=== PATIENT | male | born 1995 | race Two or more races ===

== ENCOUNTER 2022-05-25 22:46 | Emergency (ER) | payer SELFPAY ==
[~2022-05-25] VITALS: Ht 177.8 cm; Wt 69.0 kg
[2022-05-25 22:54] VITALS: BP 132/78
[2022-05-25 23:37] LABS: CHLORIDE 100 mEq/L (98-107)
[2022-05-25 23:48] LABS: ETHANOL BLOOD < 10 mg/dL
[2022-05-26 00:04] LABS: HEMOGLOBIN. 15.3 g/dL (14.0-18.0); MEAN PLATELET VOLUME 8.1 fl (7.4-10.4)
[2022-05-26 00:13] LABS: BASOPHILS % 0.6 % (0.0-2.0); EOSINOPHILS % 0.9 % (0.0-5.0); HEMATOCRIT. 45.3 % (42.0-52.0); MEAN CORPUSCULAR HEMOGLOBIN 29.8 pg (28.0-32.0); MEAN CORPUSCULAR VOLUME 88.4 fL (80.0-94.0); MONOCYTES % 9.9 % (2.0-8.0); NEUTROPHILS % 48.6 % (40.0-76.0); PLATELET 186 x1000/uL (130-400); RED BLOOD CELL COUNT 5.12 mill/uL (4.7-6.1); RED CELL DISTRIBUTION WIDTH 14.5 % (11.6-14.6)
== END 2022-05-26 01:26 | disposition home or self-care (01) ==
LOC: ER 23:02 → EDSEX 23:02 → ER 05-26 01:26
DX: R44.0 Auditory hallucinations (principal)
CPT/HCPCS: 36415; 80053; 80307; 80320; 80329; 85025; 99283; G0480